=== PATIENT | male | born 1995 | race Two or more races ===

== ENCOUNTER 2021-07-31 03:33 | Emergency (ER) | payer OTHER ==
[~2021-07-31] VITALS: Ht 177.8 cm; Wt 59.0 kg
[2021-07-31] MEDS ORDERED: HYDROXYZIN10 MG/5 ML (03:48)
[2021-07-31] MEDS ORDERED: HUMIRA PEN40 MG/0.2 (03:49)
== END 2021-07-31 07:51 | disposition home or self-care (01) ==
LOC: ER 03:33
DX: R21 Rash and other nonspecific skin eruption (principal); L29.9 Pruritus, unspecified; K50.90 Crohn's disease, unspecified, without complications; Z91.013 Allergy to seafood

== ENCOUNTER 2024-01-18 08:08 | Emergency (ER) | payer OTHER ==
[~2024-01-18] VITALS: Ht 177.8 cm; Wt 68.0 kg
[~2024-01-18 08:08] MED LIST: DIPHENHYDRAMINE50 M1 PO; GABAPENTIN600 MG PO; HUMIRA PEN40 MG/0.2; HYDROXYZIN10 MG/5 ML; PEPCID AC20 MG PO; RINVOQ45 MG PO; ZOLOFT100 MG PO
[2024-01-18] MEDS ORDERED: 0.9 % SODIUM CHLORIDE 1,000 ML IV STA (08:25)
[2024-01-18] MEDS ORDERED: ACETAMINOPHEN 500 MG GEL..CAP PO ONE ×2 (08:30→17:45)
[2024-01-18 09:12] LABS: HEMOGLOBIN 13.8 g/dL (13-16.00); MEAN CELL VOLUME 80.4 fL (80.0-100.00); MEAN CORPUSCULAR HEMOGLOBIN 27.8 pg (27.00-32.0); MEAN CORPUSCULAR HGB CONC 34.6 g/dl (32.0-36.0); PLATELET COUNT 224 K/uL (150-450); RED BLOOD COUNT 4.98 M/uL (4.00-6.00); RED CELL DISTRIBUTION WIDTH 15.1 % (11.5-14.5)
[2024-01-18 09:33] LABS: ALBUMIN 3.7 gm/dL (3.4-5.0); BILIRUBIN TOTAL 0.83 mg/dL (0.3-1.2); CALCIUM 9.3 mg/dL (8.5-10.1); CREATININE SERUM 1.34 mg/dL (0.70-1.30); GFR 62.59; TOTAL PROTEIN 8.7 gm/dL (6.4-8.2)
[2024-01-18 09:35] LABS: POTASSIUM 2.83 mEq/L (3.5-5.1)
[2024-01-18 09:38] LABS: URINE APPEARANCE Clear; URINE BILIRRUBIN Negative (NEGATIVE); URINE BLOOD Negative; URINE COLOR Yellow; URINE GLUCOSE Negative (NEGATIVE); URINE KETONE Negative (NEGATIVE); URINE LEUKOCYTE Negative; URINE NITRATE Negative; URINE PROTEIN Negative (NEGATIVE); URINE UROBILINOGEN 0.2 E.U./dl
[2024-01-18 09:43] LABS: URINE EPITHELIAL CELLS 3.4 uL (0.0-38.8); URINE WBC 2.9 uL (0.0-23.2)
[2024-01-18] MEDS ORDERED: POTASSIUM CHLORIDE IN 0.9%NACL 40 MEQ/1,000 ML PIGGYBAG IV ONE (09:45)
[2024-01-18 10:08] LABS: URINE BACTERIA 2.4 uL (0.0-1933)
[2024-01-18] MEDS ORDERED: KETOROLAC TROMETHAMINE 30 MG VIAL IV ONE (12:15)
[2024-01-18] MEDS ORDERED: CIPROFLOXACIN IN 5 % DEXTROSE 400 MG/200 ML PIGGYBAG IV ONE (12:15)
[2024-01-18] MEDS ORDERED: METRONIDAZOLE/SODIUM CHLORIDE 500 MG/100 ML PIGGYBACK IV ONE (12:15)
[2024-01-18] MEDS ORDERED: METHYLPREDNISOLONE SOD SUCC 40 MG VIAL IV ONE (17:45)
[2024-01-18] MEDS ORDERED: MEPERIDINE HCL/PF 25 MG/ML VIAL IM ONE (18:15)
[2024-01-18] MEDS ORDERED: 0.9 % SODIUM CHLORIDE 1,000 ML IV SCH (19:00)
[2024-01-19] MEDS ORDERED: METRONIDAZOLE/SODIUM CHLORIDE 100 ML IV SCH (01:00)
[2024-01-19] MEDS ORDERED: POTASSIUM CHLORIDE 20MEQ/100ML H2O PB IV ONE (02:00)
[2024-01-19] MEDS ORDERED: CIPROFLOXACIN IN 5 % DEXTROSE 200 ML IV SCH (09:00)
[2024-01-19] MEDS ORDERED: FAMOTIDINE/PF 20 MG in 0.9 % SODIUM CHLORIDE 8 ML IV PUSH SCH (09:00)
== END 2024-01-19 06:26 | disposition home or self-care (01) ==
LOC: ER 08:10
PROVIDERS: Emergency Medicine
DX: K50.90 Crohn's disease, unspecified, without complications (principal); Z91.013 Allergy to seafood; Z91.041 Radiographic dye allergy status; Z20.822 Contact with and (suspected) exposure to COVID-19; K52.89 Other specified noninfective gastroenteritis and colitis
CPT/HCPCS: 36415; 74177; 96365; 96366; 96372; 99285; J0744; J3430; J3490; J7030; Q9965